=== PATIENT | female | born 1960 | race Caucasian/White ===

== ENCOUNTER 2019-05-22 12:21 | Emergency (ER) | payer OTHER ==
[~2019-05-22] VITALS: Ht 175.3 cm; Wt 111.0 kg
[2019-05-22] MEDS ORDERED: LORAZEPAM0.5 MG PO (12:42)
[2019-05-22] MEDS ORDERED: VOLTAREN - GENE75 MG PO (12:54)
[2019-05-22 13:20] VITALS: BP 134/80
== END 2019-05-22 13:20 | disposition home or self-care (01) | DRG 605 ==
LOC: ED 12:21
DX: S70.12XA Contusion of left thigh, initial encounter (principal); M54.9 Dorsalgia, unspecified; F17.210 Nicotine dependence, cigarettes, uncomplicated; V94.0XXA Hitting object or bottom of body of water due to fall from watercraft, initial encounter